=== PATIENT | female | born 1960 | race Caucasian/White ===

== ENCOUNTER 2021-01-11 13:20 | Emergency (ER) | payer OTHER ==
[~2021-01-11] VITALS: Ht 162.6 cm; Wt 65.0 kg
--- NOTE | 2021-01-11 13:37 | NUR ---
BREAK RN: CONTACT WITH PT, 60 YR OLD FEMALE HERE WITH C/O "RIGHT GROIN PAIN, HAS BEEN COMING ON FOR ABOUT A YEAR. LIKE A CATCH GETTING IN AND OUT OF THE CAR. LAST WEEK I DID WEED EATING AND IT JUST PROGRESSED. IT HURTS THE WORST WHEN I'M SITTING AND THEN STAND. IT JUST GRABS"
--- NOTE | 2021-01-11 13:43 | NUR ---
PARAM BENAVIDEZ AT BEDSIDE TO EVAL PT
--- NOTE | 2021-01-11 14:10 | NUR ---
RECEIVED REPORT FROM MADDY MARTIN. US CURRENTLY BEDSIDE.
[2021-01-11 14:18] LABS: BASOPHILS % (AUTO) 1 % (0-1); EOSINOPHILS % (AUTO) 2 % (1-7); LYMPHOCYTES % (AUTO) 32 % (22-44); MEAN CORPUSCULAR HEMOGLOBIN 33.6 pg (27.0-34.8); MEAN CORPUSCULAR HGB CONC 34.9 g/dL (32.4-35.8); MEAN PLATELET VOLUME 8.8 fL (7.4-10.4); MONOCYTES % (AUTO) 8 % (2-9); NEUTROPHILS % (AUTO) 58 % (42-75); PLATELET COUNT 296 x10^3/uL (130-400); RED BLOOD COUNT 3.98 x10^6/uL (3.82-5.3); RED CELL DISTRIBUTION WIDTH 12.7 % (9.6-15.2)
[2021-01-11 14:29] LABS: ALBUMIN 3.9 g/dL (3.4-5.0); ANION GAP 7 mmol/L (5-15); CALCIUM 8.9 mg/dL (8.5-10.1); CHLORIDE 107 mmol/L (98-107)
[2021-01-11 14:32] LABS: ALANINE AMINOTRANSFERASE 36 U/L (12-78); ALKALINE PHOSPHATASE 78 U/L (45-117); BILIRUBIN,TOTAL 0.3 mg/dL (0.2-1.0); CREATININE 0.79 mg/dL (0.55-1.02); TOTAL PROTEIN 7.4 g/dL (6.4-8.2)
--- NOTE | 2021-01-11 14:40 | NUR ---
PT IS SITTING COMFORTABLY IN GURNEY, DENIES ANY NEED. VSS, NADN, CALL LIGHT W/IN REACH
--- NOTE | 2021-01-11 14:47 | NUR ---
PT TO BATHROOM AND BACK W/O INCIDENT. UA COLLECTED AND SENT.
[2021-01-11 15:21] LABS: MICROSCOPIC AUTO
[2021-01-11 16:00] VITALS: BP 130/78
--- NOTE | 2021-01-11 16:01 | NUR ---
ROUNDING ON PT, SHE DENIES ANY NEEDS. SHE STATED MD WAS HERE AND IS EXPECTING TO BE DISCHARGED. CHERELLE, DAE, CALL LIGHT W/IN REACH.
--- NOTE | 2021-01-11 16:38 | NUR ---
Patient given discharge instructions and they have confirmed that they understand the instructions. Patient ambulatory with steady gait.
== END 2021-01-11 16:39 | disposition home or self-care (01) ==
LOC: ED 13:50
DX: S76.211A Strain of adductor muscle, fascia and tendon of right thigh, initial encounter (principal); N30.00 Acute cystitis without hematuria; Z87.891 Personal history of nicotine dependence; X58.XXXA Exposure to other specified factors, initial encounter; Y93.89 Activity, other specified; Y92.89 Other specified places as the place of occurrence of the external cause; Y99.8 Other external cause status
CPT/HCPCS: 36415; 76857; 80053; 81001; 85025; 87086; 99284; 99285